=== PATIENT | female | born 1940 | race Asian ===

== ENCOUNTER 2017-02-13 09:42 | Day surgery (SDC) | payer OTHER ==
[2017-02-13] VITALS (12 sets, daily range): BP systolic 103–142; BP diastolic 70–89; PULSE 62–78; RESP 15–36; Ht 165.1 cm; Wt 72.2 kg
[~2017-02-13] VITALS: Ht 165.1 cm; Wt 72.2 kg
[~2017-02-13 09:42] MED LIST: BP MEDS; CEFAZOLIN 2 GM/50 ML (PMX) 50 ML IVPB SCH; HARVONI; SOD CHLORIDE 0.9% 1,000 ML IV SCH
[2017-02-13] MEDS ORDERED: AMLO5TAB4 PO (10:15)
[2017-02-13] MEDS ORDERED: BUPIVACAINE 0.25% (MPF) 30 ML INJ ONE (10:58)
[2017-02-13] MEDS ORDERED: ROCURONIUM 50 MG INJ ONE (11:05)
[2017-02-13] MEDS ORDERED: FENTAnyl 50 MCG/ML VIAL ONE (11:06)
[2017-02-13] MEDS ORDERED: MIDAZOLAM 1 MG/ML 2 ML INJ ONE (11:06)
[2017-02-13] MEDS ORDERED: ROPIVACAINE 0.5 % 30 ML VIAL ONE (11:06)
[2017-02-13] MEDS ORDERED: PROPOFOL 20 ML ONE (11:06)
[2017-02-13] MEDS ORDERED: CEFAZOLIN 1 GM INJ ONE (11:06)
[2017-02-13] MEDS ORDERED: ONDANSETRON 4 MG INJ IV PRN (11:30)
[2017-02-13] MEDS ORDERED: PHENYLephrine (100 MCG/ML) 5ML SYG ONE (11:30)
[2017-02-13] MEDS ORDERED: morphine (1 MG/ML) 10ML SYRINGE IV PRN ×3 (11:30)
[2017-02-13] MEDS ORDERED: FENTAnyl 50 MCG/ML VIAL IV PRN ×3 (11:30)
[2017-02-13] MEDS ORDERED: DIPHENHYDRAMINE 50 MG INJ IV PRN (11:30)
[2017-02-13] MEDS ORDERED: MEPERIDINE 25 MG INJ IV PRN (11:30)
[2017-02-13] MEDS ORDERED: LABETALOL HCL 20MG INJ IV PRN (11:30)
[2017-02-13] MEDS ORDERED: hydrALAzine 20 MG INJ IV PRN (11:30)
[2017-02-13] MEDS ORDERED: EPHEDrine SULFATE 50 MG/5 ML SYG IV PRN (11:30)
[2017-02-13] MEDS ORDERED: DEXAMETHASONE 4 MG/ML 1 ML INJ ONE (11:46)
[2017-02-13] MEDS ORDERED: METOCLOPRAMIDE 10 MG INJ ONE (11:46)
[2017-02-13] MEDS ORDERED: ONDANSETRON 4 MG INJ ONE (11:46)
[2017-02-13] MEDS ORDERED: SUGAMMADEX SODIUM 200 MG/2 ML VIAL IV ONE (11:46)
[2017-02-13] MEDS ORDERED: oxyCODONE 5 MG TAB PO ONE (12:00)
--- NOTE | 2017-02-13 12:04 | OPR ---
Date/Time of Note Date/Time of Note DATE: 02/13/17 TIME: 11:56 Operative Report Procedure Date: Feb 13, 2017 Preoperative Diagnosis symptomatic gallstones Postoperative Diagnosis same Operation Performed 1. laparoscopic cholecystectomy 1. therapeutic injection of subcutaneous marcaine cpt code 22395 Surgeon: Orlin MARR Shell Sieve Operator: CARLO BURGOS MD Anesthesia Type: general Estimated Blood Loss: 0 - 10 ml's Specimens gallbladder Grafts/Implants: none Complications: no Indications This is a 75-year-old female with history of hep C cirrhosis who requires laparoscopic cholecystectomy because she had a centimeter gallstones. Risks alternatives benefits and percent were discussed the patient and daughter. They expressed understanding and consent to the operating. Procedure Description Patient taken to the OR prepped and draped in usual sterile fashion. Surgical timeout is performed. IV antibiotics given. Infraumbilical transverse incision is made with a 15 blade. Dissection cautery was carried down to the fascia. The fascia was grasped with [place]'s and divided with curved Robert scissors. 0 Vicryl U stitches placed into the fascia. Balloon trocar is introduced. Pneumoperitoneum was. Midepigastric 12 mm optical trocar was placed under direct visualization right upper quadrant right upper flank 5 mm optical trocar placed under direct visualization. Upon initial examination there is some adhesions to the gallbladder which are taken down with hook. There is good hemostasis the gallbladder was grasped with a lateral and outward direction. The lateral dissection cautery and careful dissection was performed to isolate the cystic duct. The critical view is established. The cystic duct was divided with reactive thickened tissues the distal end was divided with a 35 mm echelon vascular stapler. The cystic artery was divided with 3 clips proximally clipped distal the gallbladder was taken of the gallbladder bed. There is good the gallbladder was retrieved using an Endo Catch bag. Port sites were removed under direct visualization. The fascia was closed by tying down the 0 Vicryl U stitch. The skin was closed using skin breonna. Therapeutic subcutaneous Marcaine was injected throughout the incision site. Dry dressings were applied. Subcu Orlin MARR Feb 13, 2017 12:04
== END 2017-02-13 17:43 | disposition home or self-care (01) ==
LOC: SDS 09:42
PROVIDERS: ATTEND Surgery
DX: K80.10 Calculus of gallbladder with chronic cholecystitis without obstruction (principal); I10 Essential (primary) hypertension
CPT/HCPCS: 47562; 88304; J0690; J1100; J2250; J2370; J2405; J2765; J2795; J3010; Z7512; Z7610